=== PATIENT | male | born 1990 | race Caucasian/White ===

== ENCOUNTER 2017-09-20 16:02 | Emergency (ER) | payer MEDICAID, SELFPAY ==
[2017-09-20 16:02] VITALS: BP 126/85; PULSE 110; RESP 16; TEMP 37.3; O2SAT 98; BMI 17.2
--- NOTE | 2017-09-20 16:50 | ED.DCSUM_ITS ---
- ER Visit Summary Date of Service: 09/20/17 Chief Complaint: Back pain History of Present Illness: The patient is a 27 M presenting with lower and upper back pain. Patient states he does a lot of heavy lifting at work. He works for a [employer]. He has had back pain for several years. He was seen at [facility] last week. He was given 2 days off work. He went back to work today and presented with worsening pain. He has been taking Tylenol for pain. He states he has continued pain in his mid and lower back. He has no bowel or bladder incontinence. No numbness or weakness. He is able to ambulate. He does not have a family physician. Physical Examination: Vitals are stable. Patient is afebrile. Alert no acute distress. HEENT exam is unremarkable. Neck is nontender Lungs are clear and equal bilaterally. Heart is regular rate and rhythm. Abdomen is soft nontender nondistended. Back: thoracic paraspinal muscle tenderness, no midline tenderness Extremities are unremarkable. Skin is warm and dry. No focal neurologic deficit. Normal strength and sensation. Remainder of exam is unremarkable. Emergency Department Course and Treatment: Thoracic spine x-ray shows no acute process. He is given Toradol IM. He is given prescription for Naprosyn and Flexeril. He is given Dr. Becker taxonomy teacher for no doc for follow-up. Advised return ED if worsening complaints. Disposition: Discharge home Impression: Acute on chronic back pain This note was generated with [employer] dictation software. It may contain incorrect words, spelling, and punctuation that were not noted in review of the chart prior to signing ED Disposition - Plan for ED Patient: Chief Complaint: Back Referrals: Care Physician,No Primary [Primary Care Provider] -
[2017-09-20] MEDS: Ketorolac 60 MG/2 ML Vial IM (17:11)
--- NOTE | 2017-09-20 17:20 | RAD_ITS ---
STUDY: X-RAY - THORACIC SPINE REASON FOR EXAM: Male, 27 years old. Pain. TECHNIQUE: 3 view(s) of the thoracic spine were obtained. COMPARISON: None. FINDINGS: There is no evidence of fracture or dislocation in the thoracic spine. The vertebral body heights and disc spaces are well-maintained. There are no significant degenerative changes. RAD/Thoracic Spine 3 Views IMPRESSION: No fracture or dislocation in the thoracic spine. Electronically Signed: Mohan Ritchie, at 17:36 EDT Tel , Service support ,
--- NOTE | 2017-09-20 18:19 | ED.DEP ---
ED Disposition - Plan for ED Patient: Chief Complaint: Back Instructions: ED Neck Back Pain General Prescriptions: Naproxen [Naprosyn] 500 mg PO BID PRN #20 tablet Cyclobenzaprine [Flexeril] 10 mg PO TID PRN #20 tablet PRN Reason: Muscle Spasm Referrals: Care Physician,No Primary [Primary Care Provider] - Madai Becker MD [STAFF PHYSICIAN] -
[2017-09-20 18:33] VITALS: BP 112/69; PULSE 57; RESP 15; O2SAT 98
== END 2017-09-20 18:33 | disposition home or self-care (01) ==
PROVIDERS: Emergency Provider Emergency Medicine
DX: G89.29 Other chronic pain (principal); M54.9 Dorsalgia, unspecified
CPT/HCPCS: 72072; 96372; 99283

== ENCOUNTER 2022-09-30 02:28 | Emergency (ER) | payer BC, SELFPAY ==
[2022-09-30 02:28] VITALS: BP 107/83; PULSE 80; RESP 15; TEMP 36.8; O2SAT 98; BMI 17.7
--- NOTE | 2022-09-30 02:40 | RAD_ITS ---
INDICATION: chest pain, dizziness EXAMINATION/TECHNIQUE: X-RAY - XR Chest 1 View COMPARISON: None. FINDINGS: LINES/DEVICES: None. LUNGS: Hyperexpanded lungs. No pulmonary edema or focal airspace consolidation. No sizable pleural effusion. No pneumothorax detected. MEDIASTINUM AND CARDIOVASCULAR STRUCTURES: Heart size within normal limits. Mediastinal contours unremarkable. BONES AND SOFT TISSUES: No acute findings. RAD/Chest 1 View (Portable) IMPRESSION: COPD Electronically Signed: Shayne Morgan MD at 3:21 EDT ,
--- NOTE | 2022-09-30 02:51 | EDS_ITS ---
HPI History of Present Illness Chief Complaint: Dizziness Narrative Narrative: 32-year-old male presenting with left arm pain. He states he has had this for about 4 days. It is intermittent. He has been able to use the left arm. Patient notes today while he was at work he started to feel lightheaded and off- balance. He states that he is having chest pain but he is only referring to his arm pain he does not have any pain in his actual chest. He is not having shortness of breath, fever, chills. He states he has no cardiac disease. He states he is felt lightheaded like this in the past but never this bad. He felt like he was going to faint. Patient denies early cardiac disease in his family. He is not a smoker. PFSH PFSH Home Medications cyclobenzaprine 10 mg tablet 10 mg PO TID PRN Muscle Spasm ##20 09/20/17 [Rx Last Taken Unknown] naproxen 500 mg tablet 500 mg PO BID PRN #20 tabs 09/20/17 [Rx Last Taken Unknown] Allergy/AdvReac Type Severity Reaction Status Date / Time No Known Allergies Allergy Verified 09/20/17 16:04 Social History Smoking Status: Never smoker ROS ROS ED Constitutional Constitutional ED: Denies chills or fever(s) Eyes Eyes: Denies blurry vision or change in vision ENT ENT ED: Denies rhinorrhea or sore throat Cardiovascular Cardiovascular: Reports as per HPI Respiratory/Chest Respiratory/Chest: Denies cough or dyspnea Gastrointestinal Gastrointestinal: Denies abdominal pain Genitourinary Genitourinary ED: Denies dysuria or hematuria Musculoskeletal Musculoskeletal: Reports other Details: Left arm pain Integumentary Denies abscess or Abrasions Neurologic Neurologic: Denies headache(s) or paresthesias Psychiatric Psychiatric: Denies anxiety or depression EXAM Physical Exam Const Vital Signs: 09/30/22 02:28 09/30/22 02:32 09/30/22 02:48 Temperature 98.3 F Temperature Source Temporal Pulse Rate 80 Pulse Rate [Lying] Pulse Rate [Sitting (for 1 minute prior to obtaining)] Pulse Rate [Standing (for 1 minute prior to obtaining)] Respiratory Rate 15 Respiratory Effort Normal Blood Pressure 107/83 H Blood Pressure [Lying] Blood Pressure [Sitting (for 1 minute prior to obtaining)] Blood Pressure [Standing (for 1 minute prior to obtaining)] Blood Pressure Mean 91 Blood Pressure Mean [Lying] Blood Pressure Mean [Sitting (for 1 minute prior to obtaining)] Blood Pressure Mean [Standing (for 1 minute prior to obtaining)] Pulse Ox 98 Oxygen Delivery Method Room Air Room Air 09/30/22 04:38 09/30/22 04:53 Temperature Temperature Source Pulse Rate Pulse Rate [Lying] 67 Pulse Rate [Sitting (for 1 minute prior to obtaining)] 67 Pulse Rate [Standing (for 1 minute prior to obtaining)] 102 H Respiratory Rate 18 Respiratory Effort Blood Pressure 102/81 H Blood Pressure [Lying] 106/82 H Blood Pressure [Sitting (for 1 minute prior to obtaining)] 115/86 H Blood Pressure [Standing (for 1 minute prior to obtaining)] 104/83 H Blood Pressure Mean 88 Blood Pressure Mean [Lying] 90 Blood Pressure Mean [Sitting (for 1 minute prior to obtaining)] 95 Blood Pressure Mean [Standing (for 1 minute prior to obtaining)] 90 Pulse Ox 99 Oxygen Delivery Method Room Air MDM MDM MDM Narrative Medical decision making narrative: Patient presenting with left arm pain. He is saying chest pain but he has not had any pain in his actual chest just arm pain. His left arm has 5/5 strength throughout. Sensation intact. Radial pulse 2+. Brisk cap refill to all 5 fingers. No limitation in range of motion. Lungs clear to auscultation bilaterally. He is also stating that he feels lightheaded like he is going to faint. Differential includes but is not limited to dehydration, electrolyte abnormality, anemia, ACS, dysrhythmia. Patient's lungs are clear to auscultation bilaterally. Vital signs are stable he is afebrile. He is PERC negative. EKG obtained on my interpretation shows sinus rhythm with premature supraventricular complexes. No evidence of ischemia. Ventricular rate 71 bpm. CA interval 118 ms, QRS duration 90 ms. No QT prolongation. No WPW, Brugada, HOCM. No STEMI. CBC shows normal white blood cell count 6.0. Hemoglobin hematocrit are stable. Platelets are normal. Renal function electrolytes within normal limits. High-sensitivity total initially 5 and delta troponin is 4. Patient orthostatic vital signs were his blood pressure remained about the same although his heart rate raised. He was a little symptomatic with this. He is not dehydrated based on his lab work. I do not believe needs fluids. I recommended that he follow-up with cardiology and he should return for new or worsening symptoms. Impression: 1. Lightheadedness 2. Near syncope Lab Data Labs: Laboratory Results - last 24 hr 09/30/22 09/30/22 09/30/22 02:44 02:44 04:56 WBC 6.0 RBC 5.02 Hgb 14.3 Hct 43.4 MCV 86.5 MCH 28.5 MCHC 32.9 RDW Std Deviation 38.2 RDW Coeff of Estela 12.2 Plt Count 133 L MPV 13.1 H Immature Gran % (Auto) 0.200 Neut % (Auto) 71.2 H Lymph % (Auto) 18.4 L [place] % (Auto) 8.0 Eos % (Auto) 1.5 Baso % (Auto) 0.7 Absolute Neuts (auto) 4.3 Absolute Lymphs (auto) 1.10 Nucleated RBC % 0 Sodium 137 Potassium 4.2 Chloride 107 Carbon Dioxide 27.0 Anion Gap 3 L BUN 16 Creatinine 0.86 Estim Creat Clear Calc 111.46 Est GFR (MDRD) Af Amer 131 Est GFR (MDRD) Non-Af 108 BUN/Creatinine Ratio 18.6 Glucose 99 Calcium 8.6 Troponin I High Sens 5 4 Radiography Diagnostic Testing: Clinical Impression(s) from Imaging Studies Chest X-Ray 09/30/22 02:40 IMPRESSION: COPD Electronically Signed: Shayne Morgan MD at 3:21 EDT , Discharge Plan Triage Chief Complaint: Dizziness ED Provider: Cisco Gonzalez Dx/Rx/DC Orders Instructions: ED Dizziness, Uncertain Cause Prescriptions: No Action cyclobenzaprine 10 MG tablet 10 mg PO TID PRN (Reason: Muscle Spasm) Qty: 20 0RF naproxen 500 MG tablet 500 mg PO BID PRN Qty: 20 0RF Primary Care Provider: Care Physician,No Primary Referrals: Gema Garcia MD [Med Staff - Active Staff] - 3-5 Days Care Physician,No Primary [Primary Care Provider] - Disposition Disposition: Home, Self Care
[2022-09-30 02:54] LABS: Absolute Neutrophil Count 4.3 X10^3/uL (2.0-7.7); Basophil# 0.04 X10^3/uL; Basophil% 0.7 % (0-1); Eosinophil# 0.09 X10^3/uL; Eosinophils% 1.5 % (0-5); Hematocrit 43.4 % (40-54); Hemoglobin 14.3 g/dL (13.0-16.5); Lymphocyte % 18.4 % (19-41); Mean Corp Hgb Conc 32.9 g/dL (32-36); Mean Corpuscular Hgb 28.5 pg (27.0-32.0); Mean Corpuscular Volume 86.5 fL (80-94); Mean Platelet Vol. 13.1 fl (6.2-12.0); Monocyte# 0.48 X10^3/uL; NRBC Flagged by Analyzer 0 % (0-5); Neutrophil # 4.27 X10^3/uL (2.7-7.7); Neutrophil % 71.2 % (47-70); Platelet Count 133 K/mm3 (150-450); RBC Distribution Width CV 12.2 % (11.6-14.6); RBC Distribution Width SD 38.2 fl (35.1-43.9); Red Blood Count 5.02 M/mm3 (4.6-6.2)
[2022-09-30 03:10] LABS: Anion Gap 3 (5-15); BUN 16 mg/dL (7-18); BUN/Creat Ratio 18.6 RATIO (10-20); Calcium,Total 8.6 mg/dL (8.5-10.1); Chloride 107 mmol/L (98-107); Creatinine, Serum 0.86 mg/dL (0.70-1.30); EST Glomerular Filtration Rate 108 mL/min (>60); Est Glom Filt Rate - Afr Amer 131 mL/min (>60); Estimated Creatinine Clearance 111.46 ml/min; Glucose 99 mg/dL (74-106); Potassium 4.2 mmol/L (3.5-5.1); Sodium Level 137 mmol/L (136-145); Troponin-I HS (w/2H Reflex) 5 pg/mL (3.0-78.0)
[2022-09-30 04:38] VITALS: BP 104/83; BP 106/82; BP 115/86; PULSE 102; PULSE 67
[2022-09-30 04:50] LABS: Reflex Troponin-HS? (from REC) Y
[2022-09-30 04:53] VITALS: BP 102/81; RESP 18; O2SAT 99
[2022-09-30 05:19] LABS: Troponin-I HS 4 pg/mL (3.0-78.0)
[2022-09-30 05:36] VITALS: BP 118/60; PULSE 82; RESP 18; O2SAT 100
== END 2022-09-30 05:37 | disposition home or self-care (01) ==
PROVIDERS: Emergency Provider Student in an Organized Health Care Education/Training Program; Visit Provider Student in an Organized Health Care Education/Training Program
DX: R42 Dizziness and giddiness (principal); R07.9 Chest pain, unspecified; R55 Syncope and collapse; M79.602 Pain in left arm
CPT/HCPCS: 71045; 80048; 84484; 85025; 93005; 99285; A4216

== ENCOUNTER → 2022-10-15 | Outpatient (CLI) | payer SELFPAY ==
[2022-10-15 12:45] LABS: Cholesterol 95 mg/dL (200); High Density Lipoprotein 38 mg/dL; Magnesium 2.2 mg/dL (1.6-2.6); Triglycerides 34 mg/dL; Very Low Density Lipoprotein 7 mg/dL (5-40)
== END | disposition home or self-care (01) ==
LOC: LAB 12:09
PROVIDERS: Referring Provider Internal Medicine Cardiovascular Disease; Visit Provider Internal Medicine Cardiovascular Disease
DX: R00.2 Palpitations (principal)
CPT/HCPCS: 36415; 80061; 83735